=== PATIENT | male | born 1990 | race Asian ===

== ENCOUNTER 2023-09-17 23:27 | Emergency (ER) | payer OTHER ==
[~2023-09-17] VITALS: Ht 175.3 cm; Wt 82.0 kg
[2023-09-17 23:45] VITALS: BP 118/71; PULSE 64; RESP 20; TEMP 98.2; O2SAT 100
== END 2023-09-18 00:56 | disposition home or self-care (01) ==
LOC: ER 23:36
DX: S61.213A Laceration without foreign body of left middle finger without damage to nail, initial encounter (principal); W45.8XXA Other foreign body or object entering through skin, initial encounter; Y93.89 Activity, other specified; Y92.89 Other specified places as the place of occurrence of the external cause; Y99.8 Other external cause status
CPT/HCPCS: 12001; 99282